=== PATIENT | female | born 1980 | race African-American/Black ===

== ENCOUNTER 2016-03-24 10:32 | Day surgery (SDC) | payer MEDICAID ==
[2016-03-24] VITALS (8 sets, daily range): BP systolic 104–110; BP diastolic 46–66; PULSE 76–96; TEMP 98–98.5
[~2016-03-24] VITALS: Ht 167.6 cm; Wt 59.1 kg
[~2016-03-24 10:32] MED LIST: ACETAMINOPHEN W1 TA6 PO; ALBUTEROL0.09 MG/A1 IH; AMOXICILLIN 50500 MG PO; BETA BLOCKER; CLEOCIN HC150 MG/CAP PO; HYPERTHYROID MED; IBU800 M1 PO; LORTAB 5/500 501 TAB PO; NAPROSYN 2250 MG/TAB PO; NAPROSYN375 MG PO; NAPROSYN500 MG PO; NO HOME MEDICATIONS; NORCO 325 MG-51 TAB PO; NORCO 325 MG-7.1 TAB PO; PERCOCET 325 MG1 TA2 PO; PHENERGAN 25 TA25 MG PO; PHENERGAN W/CO120 ML PO; PHENERGAN25 MG RC; PROAIR HFA0.09 MG/AC; PROAIR HFA0.09 MG/AC IH; PROVENTIL0.09 MG/A1 IH; TAMIFLU 75MG75 MG PO; TAPAZOLE10 MG PO; TENORMIN 2525 MG/TAB PO; ULTRAM 50MG TAB50 MG; ULTRAM 50MG TAB50 MG PO; VENTOLIN0.09 MG IH; ZOFRAN 4MG T4 MG/TAB PO; ZOFRAN ODT4 MG PO
[2016-03-24] MEDS ORDERED: TENORMIN 2525 MG/TAB PO (11:19)
[2016-03-24] MEDS ORDERED: NORCO 325 MG-51 TAB PO (14:40)
[2016-03-24] MEDS ORDERED: ZOFRAN ODT4 MG PO (14:41)
== END 2016-03-24 18:10 | disposition home or self-care (01) ==
LOC: SDCO 10:32
DX: K66.0 Peritoneal adhesions (postprocedural) (postinfection) (principal); E05.90 Thyrotoxicosis, unspecified without thyrotoxic crisis or storm
CPT/HCPCS: J0690; J1100; J1885; J2270; J2300; J2405; J2704; J3010; J7120

== ENCOUNTER → 2016-05-04 | Outpatient (CLI) | payer OTHER ==
[~2016-05-04] MED LIST changes: +ATIVAN 0.50.5 MG/TAB PO; +LEXAPRO20 MG PO; +PREDNISONE20 MG PO; +TAPAZOLE5 MG PO
== END ==
LOC: COL.RAD 09:34
DX: Z02.71 Encounter for disability determination (principal); M25.871 Other specified joint disorders, right ankle and foot

== ENCOUNTER 2016-05-07 12:52 | Emergency (ER) | payer MEDICAID ==
[~2016-05-07] VITALS: Ht 167.6 cm; Wt 59.1 kg
[~2016-05-07 12:52] MED LIST changes: -ATIVAN 0.50.5 MG/TAB PO; -LEXAPRO20 MG PO; -PREDNISONE20 MG PO; -TAPAZOLE5 MG PO
[2016-05-07 13:02] VITALS: BP 113/68; PULSE 105
[2016-05-07 15:14] LABS: INFLUENZA B NEGATIVE
[2016-05-07 15:21] VITALS: TEMP 102.7
[2016-05-07] MEDS ORDERED: PREDNISONE20 MG PO (15:29)
== END 2016-05-07 15:33 | disposition home or self-care (01) ==
LOC: COL.ER 12:52
PROVIDERS: Physician Assistant
DX: J11.1 Influenza due to unidentified influenza virus with other respiratory manifestations (principal)

== ENCOUNTER 2016-06-13 13:12 | Emergency (ER) | payer MEDICAID ==
[~2016-06-13] VITALS: Ht 167.6 cm; Wt 58.2 kg
[~2016-06-13 13:12] MED LIST changes: +PREDNISONE20 MG PO
[2016-06-13 13:23] VITALS: TEMP 99
[2016-06-13] MEDS ORDERED: LEXAPRO20 MG PO (13:30)
[2016-06-13] MEDS ORDERED: TAPAZOLE5 MG PO (13:30)
[2016-06-13] MEDS ORDERED: TENORMIN 2525 MG/TAB PO (13:32)
[2016-06-13 14:11] LABS: ADJUSTED CALCIUM 8.7 mg/dL (8.4-10.2); ALANINE AMINOTRANSFERASE 28 U/L (9-52); ALBUMIN 4.1 gm/dL (3.5-5.0); ALKALINE PHOSPHATASE 75 U/L (50-136); ANION GAP 12 mmol/L (7-16); BILIRUBIN,TOTAL 1.3 mg/dL (0.0-1.0); BLOOD UREA NITROGEN 15 mg/dL (7-17); CALCIUM 8.8 mg/dL (8.4-10.2); CARBON DIOXIDE 22 mmol/L (22-30); CHLORIDE 103 mmol/L (98-107); CREATININE, serum 1.05 mg/dL (0.52-1.25); GLUCOSE 130 mg/dL (74-106); LIPASE 42 U/L (23-300); POTASSIUM 3.6 mmol/L (3.4-5.0); SODIUM 137 mmol/L (137-145)
[2016-06-13 14:22] LABS: B-TYPE NATRIURETIC PEPTIDE 135 pg/mL (0-125)
[2016-06-13 14:25] LABS: TROPONIN-I < 0.012 ng/mL (0.000-0.034)
[2016-06-13 15:08] LABS: BASO % 0.3 % (0.0-2.0); EOS # 0.1 (0.0-0.7); EOS % 0.6 % (0-4.0); GRAN # 7.2 (1.4-6.5); GRAN % 66.5 % (42.2-75.2); HEMATOCRIT 38.2 % (37.0-47.0); HEMOGLOBIN 12.7 g/dl (12.5-16.0); LYMPH # 2.6 (1.2-3.4); MEAN CELL VOLUME 87 fl (80.0-100.0); MEAN CORPUSCULAR HEMOGLOBIN 29 pg (27.0-31.0); MEAN CORPUSCULAR HGB CONC 33 g/dl (33.0-37.0); MEAN PLATELET VOLUME 11.3 fl (7.4-10.4); MONO # 0.9 (0.1-0.6); MONO % 8.3 % (1.7-9.3); PLATELET COUNT 243 K/mm3 (130-400); RED BLOOD COUNT 4.39 M/mm3 (4.10-5.30); REDCELL DISTRIBUTION WIDTH-CV 13.1 % (11.5-14.5); WHITE BLOOD COUNT 10.8 K/mm3 (4.8-10.8)
[2016-06-13 16:38] VITALS: BP 103/87; PULSE 66
== END 2016-06-13 16:39 | disposition home or self-care (01) ==
LOC: COL.ER 13:12
PROVIDERS: Emergency Medicine
DX: R07.9 Chest pain, unspecified (principal)

== ENCOUNTER 2016-06-28 05:35 | Emergency (ER) | payer MEDICAID ==
[~2016-06-28] VITALS: Ht 167.6 cm; Wt 55.9 kg
[~2016-06-28 05:35] MED LIST changes: +LEXAPRO20 MG PO; +TAPAZOLE5 MG PO
[2016-06-28 05:37] VITALS: BP 140/78; TEMP 98.9
[2016-06-28 06:39] LABS: BASO % 0.3 % (0.0-2.0); EOS % 0.5 % (0-4.0); GRAN # 5.8 (1.4-6.5); GRAN % 67.1 % (42.2-75.2); HEMOGLOBIN 12.2 g/dl (12.5-16.0); LYMPH # 1.9 (1.2-3.4); LYMPH % 21.8 % (20.0-51.0); MEAN CELL VOLUME 87 fl (80.0-100.0); MEAN CORPUSCULAR HEMOGLOBIN 29 pg (27.0-31.0); MEAN CORPUSCULAR HGB CONC 34 g/dl (33.0-37.0); MEAN PLATELET VOLUME 10.5 fl (7.4-10.4); MONO # 0.9 (0.1-0.6); MONO % 10.1 % (1.7-9.3); PLATELET COUNT 210 K/mm3 (130-400); RED BLOOD COUNT 4.18 M/mm3 (4.10-5.30); REDCELL DISTRIBUTION WIDTH-CV 13.1 % (11.5-14.5); WHITE BLOOD COUNT 8.7 K/mm3 (4.8-10.8)
[2016-06-28 06:42] LABS: ALANINE AMINOTRANSFERASE 25 U/L (9-52); ALBUMIN 3.7 gm/dL (3.5-5.0); ALKALINE PHOSPHATASE 62 U/L (50-136); ANION GAP 11 mmol/L (7-16); BILIRUBIN,TOTAL 0.8 mg/dL (0.0-1.0); BLOOD UREA NITROGEN 9 mg/dL (7-17); CALCIUM 8.8 mg/dL (8.4-10.2); CARBON DIOXIDE 25 mmol/L (22-30); CHLORIDE 102 mmol/L (98-107); CREATININE, serum 0.95 mg/dL (0.52-1.25); GLUCOSE 102 mg/dL (74-106); HEMATOCRIT 36.4 % (37.0-47.0); POTASSIUM 3.4 mmol/L (3.4-5.0); SODIUM 138 mmol/L (137-145); TOTAL PROTEIN 6.5 gm/dL (6.4-8.2)
[2016-06-28] MEDS ORDERED: ATIVAN 0.50.5 MG/TAB PO (06:46)
[2016-06-28 06:59] LABS: TROPONIN-I < 0.012 ng/mL (0.000-0.034)
[2016-06-28 07:13] VITALS: PULSE 60
== END 2016-06-28 07:14 | disposition home or self-care (01) ==
LOC: COL.ER 05:35
PROVIDERS: Emergency Medicine
DX: R07.9 Chest pain, unspecified (principal); F41.9 Anxiety disorder, unspecified

== ENCOUNTER 2017-01-26 00:44 | Emergency (ER) | payer MEDICAID ==
[~2017-01-26] VITALS: Ht 167.6 cm; Wt 58.6 kg
[~2017-01-26 00:44] MED LIST changes: +ATIVAN 0.50.5 MG/TAB PO
[2017-01-26] MEDS ORDERED: FLOVENT 110MCG7.9 GM IH (00:51)
[2017-01-26] MEDS ORDERED: INDERAL 10MG10 MG PO (00:53)
[2017-01-26] MEDS ORDERED: SELENIUM PO (00:54)
[2017-01-26] MEDS ORDERED: ROXICODONE 55 MG/TAB PO (00:56)
[2017-01-26] MEDS ORDERED: NORCO 325 MG-7.1 TAB PO (00:56)
[2017-01-26 00:57] VITALS: BP 115/59; TEMP 99
[2017-01-26 02:36] VITALS: PULSE 74
== END 2017-01-26 02:16 | disposition home or self-care (01) ==
LOC: COL.ER 00:44
DX: M25.571 Pain in right ankle and joints of right foot (principal); J45.909 Unspecified asthma, uncomplicated; Z98.890 Other specified postprocedural states

== ENCOUNTER 2017-04-05 11:36 | Emergency (ER) | payer MEDICAID ==
[~2017-04-05] VITALS: Ht 167.6 cm; Wt 58.2 kg
[~2017-04-05 11:36] MED LIST changes: +FLOVENT 110MCG7.9 GM IH; +INDERAL 10MG10 MG PO; +ROXICODONE 55 MG/TAB PO; +SELENIUM PO
[2017-04-05 11:46] VITALS: BP 119/75; TEMP 98.4
[2017-04-05] MEDS ORDERED: AMBIEN 5MG TABLE5 MG PO (11:49)
[2017-04-05] MEDS ORDERED: FLEXERIL 1010 MG/TAB PO (12:16)
[2017-04-05 12:48] VITALS: PULSE 95
== END 2017-04-05 12:48 | disposition home or self-care (01) ==
LOC: COL.ER 11:36
DX: M62.838 Other muscle spasm (principal); Z86.39 Personal history of other endocrine, nutritional and metabolic disease; Z90.710 Acquired absence of both cervix and uterus; Z98.890 Other specified postprocedural states; Z79.51 Long term (current) use of inhaled steroids
CPT/HCPCS: J1885; J2360

== ENCOUNTER 2017-07-01 14:55 | Emergency (ER) | payer MEDICAID ==
[~2017-07-01] VITALS: Ht 167.6 cm; Wt 56.8 kg
[~2017-07-01 14:55] MED LIST changes: +AMBIEN 5MG TABLE5 MG PO; +FLEXERIL 1010 MG/TAB PO
[2017-07-01 14:58] VITALS: BP 136/67; TEMP 98.7
[2017-07-01] MEDS ORDERED: PREDNISONE20 MG PO (15:38)
[2017-07-01 15:45] VITALS: PULSE 69
== END 2017-07-01 15:47 | disposition home or self-care (01) ==
LOC: COL.ER 14:55
DX: G89.29 Other chronic pain (principal); M25.571 Pain in right ankle and joints of right foot; J45.909 Unspecified asthma, uncomplicated; F41.9 Anxiety disorder, unspecified; Z86.39 Personal history of other endocrine, nutritional and metabolic disease; Z98.890 Other specified postprocedural states; Z79.51 Long term (current) use of inhaled steroids

== ENCOUNTER 2017-07-14 08:00 | Outpatient (RCR) | payer MEDICAID | END 2017-07-31 | disposition home or self-care (01) | LOC: WSPT | DX: M92.61 Juvenile osteochondrosis of tarsus, right ankle (principal); Z98.890 Other specified postprocedural states ==

== ENCOUNTER 2017-08-08 15:32 | Emergency (ER) | payer MEDICAID ==
[~2017-08-08] VITALS: Ht 167.6 cm; Wt 59.1 kg
[2017-08-08 15:35] VITALS: TEMP 99.2
[2017-08-08] MEDS ORDERED: TENORMIN 2525 MG/TAB PO (15:45)
[2017-08-08] MEDS ORDERED: VIVLODEX5 MG PO (15:46)
[2017-08-08 16:43] VITALS: BP 124/72; PULSE 79
== END 2017-08-08 16:44 | disposition home or self-care (01) ==
LOC: COL.ER 15:32
DX: S93.401A Sprain of unspecified ligament of right ankle, initial encounter (principal); Z98.890 Other specified postprocedural states; Z86.39 Personal history of other endocrine, nutritional and metabolic disease; X50.0XXA Overexertion from strenuous movement or load, initial encounter; Y93.02 Activity, running

== ENCOUNTER 2017-08-23 11:17 | Outpatient (RCR) | payer MEDICAID ==
[~2017-08-23 11:17] MED LIST changes: +VIVLODEX5 MG PO
== END 2017-10-17 15:43 | disposition home or self-care (01) ==
LOC: WSPT 11:17
DX: M92.61 Juvenile osteochondrosis of tarsus, right ankle (principal)

== ENCOUNTER 2017-09-06 01:55 | Emergency (ER) | payer MEDICAID ==
[~2017-09-06] VITALS: Ht 165.1 cm; Wt 63.2 kg
[2017-09-06 01:59] VITALS: TEMP 97.6
[2017-09-06 03:05] VITALS: BP 134/76; PULSE 80
== END 2017-09-06 03:06 | disposition home or self-care (01) ==
LOC: COL.ER 01:55
DX: M76.61 Achilles tendinitis, right leg (principal); J45.909 Unspecified asthma, uncomplicated; E05.00 Thyrotoxicosis with diffuse goiter without thyrotoxic crisis or storm; Z79.51 Long term (current) use of inhaled steroids

== ENCOUNTER 2017-09-09 11:36 | Emergency (ER) | payer MEDICAID ==
[~2017-09-09] VITALS: Ht 167.6 cm; Wt 61.8 kg
[2017-09-09 11:38] VITALS: BP 119/67; PULSE 78; TEMP 98.6
== END 2017-09-09 12:05 | disposition home or self-care (01) ==
LOC: COL.ER 11:36
DX: M25.571 Pain in right ankle and joints of right foot (principal)

== ENCOUNTER 2017-11-02 00:59 | Emergency (ER) | payer MEDICAID ==
[~2017-11-02] VITALS: Ht 167.6 cm; Wt 62.7 kg
[2017-11-02] MEDS ORDERED: INDERAL 10MG10 MG (01:18)
[2017-11-02 01:56] VITALS: BP 125/78; PULSE 84
== END 2017-11-02 01:56 | disposition home or self-care (01) ==
LOC: COL.ER 00:59
DX: R07.89 Other chest pain (principal); F41.9 Anxiety disorder, unspecified; I10 Essential (primary) hypertension; Z90.710 Acquired absence of both cervix and uterus; Z98.890 Other specified postprocedural states; Z79.51 Long term (current) use of inhaled steroids
CPT/HCPCS: J1885

== ENCOUNTER 2018-02-20 19:27 | Emergency (ER) | payer MEDICAID ==
[~2018-02-20] VITALS: Ht 167.6 cm; Wt 59.1 kg
[~2018-02-20 19:27] MED LIST changes: +INDERAL 10MG10 MG
[2018-02-20 19:29] VITALS: TEMP 98.7
[2018-02-20 20:28] VITALS: BP 108/84; PULSE 90
== END 2018-02-20 20:29 | disposition home or self-care (01) ==
LOC: COL.ER 19:27
DX: J02.9 Acute pharyngitis, unspecified (principal); E05.00 Thyrotoxicosis with diffuse goiter without thyrotoxic crisis or storm; Z79.51 Long term (current) use of inhaled steroids

== ENCOUNTER → 2018-04-03 | Outpatient (CLI) | payer MEDICAID | LOC: MC.RAD 10:45 | DX: N63.10 Unspecified lump in the right breast, unspecified quadrant (principal); N63.20 Unspecified lump in the left breast, unspecified quadrant ==

== ENCOUNTER → 2018-04-04 | Outpatient (CLI) | payer MEDICAID | LOC: MC.RAD 09:48 | DX: N63.11 Unspecified lump in the right breast, upper outer quadrant (principal); N63.12 Unspecified lump in the right breast, upper inner quadrant; Z98.82 Breast implant status ==

== ENCOUNTER 2018-05-07 09:45 | Outpatient (RCR) | payer MEDICAID | END 2018-06-05 08:41 | disposition home or self-care (01) | LOC: WSPT 09:45 | DX: M94.0 Chondrocostal junction syndrome [Tietze] (principal); Z79.1 Long term (current) use of non-steroidal anti-inflammatories (NSAID); Z79.899 Other long term (current) drug therapy ==

== ENCOUNTER 2019-02-15 09:17 | Emergency (ER) | payer SELFPAY ==
[~2019-02-15] VITALS: Ht 167.6 cm; Wt 58.2 kg
[2019-02-15 09:25] VITALS: BP 126/62; TEMP 98.2
[2019-02-15] MEDS ORDERED: NAPROSYN500 MG PO (09:42)
[2019-02-15] MEDS ORDERED: LIDODERM 5% PATC1 EA TP (09:42)
[2019-02-15 10:15] VITALS: PULSE 99
== END 2019-02-15 10:14 | disposition home or self-care (01) ==
LOC: COL.ER 09:17
DX: M54.89 Other dorsalgia (principal); Z90.710 Acquired absence of both cervix and uterus; X50.1XXA Overexertion from prolonged static or awkward postures, initial encounter; Y92.59 Other trade areas as the place of occurrence of the external cause

== ENCOUNTER 2019-03-17 18:10 | Emergency (ER) | payer SELFPAY ==
[~2019-03-17] VITALS: Ht 167.6 cm; Wt 59.1 kg
[~2019-03-17 18:10] MED LIST changes: +LIDODERM 5% PATC1 EA TP
[2019-03-17 18:35] VITALS: TEMP 99.3
[2019-03-17 18:59] LABS: COLLECTION METHOD CLEAN CATCH
[2019-03-17 19:07] LABS: MUCOUS Present /lpf; PH 5 (5-8); URINE APPEARANCE Clear; URINE BACTERIA None Seen /hpf; URINE BILIRUBIN Negative (NEGATIVE); URINE BLOOD Negative (NEGATIVE); URINE COLOR Yellow; URINE GLUCOSE Negative (NEGATIVE); URINE KETONE Negative (NEGATIVE); URINE LEUKOCYTE ESTERASE Negative (NEGATIVE); URINE NITRATE Negative (NEGATIVE); URINE PROTEIN(semi-quant) 1+ (NEGATIVE); URINE RBC 0-2 /hpf; URINE UROBILINOGEN >=4.0 mg/dL (NEGATIVE)
[2019-03-17 19:29] LABS: TRICYCLIC ANTIDEPRESS URINE NEGATIVE
[2019-03-17 19:34] LABS: HEMOGLOBIN 11.1 g/dl (12.5-16.0); MEAN CELL VOLUME 81 fl (80.0-100.0); MEAN CORPUSCULAR HEMOGLOBIN 27 pg (27.0-31.0); MEAN CORPUSCULAR HGB CONC 33 g/dl (33.0-37.0); MEAN PLATELET VOLUME 10.5 fl (7.4-10.4); PLATELET COUNT 244 K/mm3 (130-400); RED BLOOD COUNT 4.14 M/mm3 (4.10-5.30)
[2019-03-17 19:40] LABS: HEMATOCRIT 33.7 % (37.0-47.0)
[2019-03-17 19:52] LABS: BAND 1 % (0-10); LYMPHOCYTE 20 % (20.0-51.0); NEUTROPHILS 63 % (42.0-75.2)
[2019-03-17 19:53] LABS: PLATELET ESTIMATE NORMAL (NORMAL)
[2019-03-17 19:54] LABS: ALANINE AMINOTRANSFERASE 29 U/L (9-52); ALBUMIN 3.8 gm/dL (3.5-5.0); ALKALINE PHOSPHATASE 108 U/L (50-136); ANION GAP 9 mmol/L (7-16); AST,SGOT 35 U/L (15-37); BILIRUBIN,TOTAL 0.6 mg/dL (0.0-1.0); BLOOD UREA NITROGEN 8 mg/dL (7-17); CALCIUM 8.8 mg/dL (8.4-10.2); CARBON DIOXIDE 22 mmol/L (22-30); CHLORIDE 109 mmol/L (98-107); CREATININE, serum 0.77 (0.52-1.25); GLUCOSE 96 mg/dL (74-106); POTASSIUM 3.4 mmol/L (3.4-5.0); SODIUM 140 mmol/L (137-145)
[2019-03-17 19:58] LABS: ACETAMINOPHEN < 10 ug/mL (10-30); ALCOHOL(ethanol),MEDICAL < 10 mg/dL; SALICYLATE < 1.0 mg/dL
[2019-03-17] MEDS ORDERED: TAPAZOLE5 MG PO (20:35)
[2019-03-17 22:58] VITALS: BP 113/61; PULSE 90
== END 2019-03-17 22:58 | disposition home or self-care (01) ==
LOC: COL.ER 18:10
PROVIDERS: Emergency Medicine
DX: F32.9 Major depressive disorder, single episode, unspecified (principal); E05.00 Thyrotoxicosis with diffuse goiter without thyrotoxic crisis or storm; Z90.710 Acquired absence of both cervix and uterus

== ENCOUNTER 2019-04-01 10:08 | Emergency (ER) | payer SELFPAY ==
[~2019-04-01] VITALS: Ht 167.6 cm; Wt 59.1 kg
[2019-04-01 10:37] LABS: COLLECTION METHOD CLEAN CATCH
[2019-04-01 10:47] LABS: MUCOUS Present /lpf; PH 5 (5-8); URINE APPEARANCE Clear; URINE BACTERIA None Seen /hpf; URINE BILIRUBIN Negative (NEGATIVE); URINE BLOOD Negative (NEGATIVE); URINE COLOR Yellow; URINE GLUCOSE Negative (NEGATIVE); URINE KETONE Negative (NEGATIVE); URINE LEUKOCYTE ESTERASE Negative (NEGATIVE); URINE NITRATE Negative (NEGATIVE); URINE PROTEIN(semi-quant) 1+ (NEGATIVE); URINE RBC 0-2 /hpf; URINE UROBILINOGEN >=4.0 mg/dL (NEGATIVE)
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
[2019-04-01 11:50] VITALS: BP 137/79; PULSE 78; TEMP 98.6
== END 2019-04-01 11:50 | disposition home or self-care (01) ==
LOC: COL.ER 10:08
PROVIDERS: Physician Assistant
DX: R30.0 Dysuria (principal); J45.909 Unspecified asthma, uncomplicated; F32.9 Major depressive disorder, single episode, unspecified; F41.9 Anxiety disorder, unspecified
CPT/HCPCS: J0696

== ENCOUNTER 2019-04-08 08:46 | Outpatient (RCR) | payer OTHER | END 2019-05-16 15:10 | disposition home or self-care (01) | LOC: WSPT 08:46 | DX: S46.812A Strain of other muscles, fascia and tendons at shoulder and upper arm level, left arm, initial encounter (principal); F32.9 Major depressive disorder, single episode, unspecified; E05.90 Thyrotoxicosis, unspecified without thyrotoxic crisis or storm; E05.00 Thyrotoxicosis with diffuse goiter without thyrotoxic crisis or storm; J45.909 Unspecified asthma, uncomplicated; R00.2 Palpitations; Z98.890 Other specified postprocedural states; Z90.710 Acquired absence of both cervix and uterus; Y99.0 Civilian activity done for income or pay | CPT/HCPCS: G0283-GP ==

== ENCOUNTER 2019-04-28 23:42 | Emergency (ER) | payer SELFPAY ==
[~2019-04-28] VITALS: Ht 167.6 cm; Wt 59.1 kg
[2019-04-28 23:48] VITALS: TEMP 98.8
[2019-04-29 00:16] VITALS: BP 128/78; PULSE 93
== END 2019-04-29 00:21 | disposition home or self-care (01) ==
LOC: COL.ER 23:42
DX: S60.222A Contusion of left hand, initial encounter (principal); Y04.8XXA Assault by other bodily force, initial encounter; Y92.009 Unspecified place in unspecified non-institutional (private) residence as the place of occurrence of the external cause

== ENCOUNTER 2020-08-04 08:10 | Emergency (ER) | payer SELFPAY ==
[~2020-08-04] VITALS: Ht 170.2 cm; Wt 55.0 kg
[2020-08-04 08:16] VITALS: TEMP 98.9
[2020-08-04] MEDS ORDERED: FLEXERIL 1010 MG/TAB PO (10:10)
[2020-08-04 10:29] VITALS: BP 117/71; PULSE 75
== END 2020-08-04 10:29 | disposition home or self-care (01) ==
LOC: COL.ER 08:10
DX: S46.912A Strain of unspecified muscle, fascia and tendon at shoulder and upper arm level, left arm, initial encounter (principal); X50.0XXA Overexertion from strenuous movement or load, initial encounter; Y04.8XXA Assault by other bodily force, initial encounter
CPT/HCPCS: J1885; J2360

== ENCOUNTER 2020-08-21 00:28 | Emergency (ER) | payer SELFPAY ==
[~2020-08-21] VITALS: Ht 167.6 cm; Wt 56.8 kg
[2020-08-21 00:32] VITALS: TEMP 97.2
[2020-08-21 01:30] VITALS: BP 114/70; PULSE 98
== END 2020-08-21 01:30 | disposition home or self-care (01) ==
LOC: COL.ER 00:28
DX: R07.0 Pain in throat (principal); J45.909 Unspecified asthma, uncomplicated
CPT/HCPCS: J8540

== ENCOUNTER 2020-09-18 00:15 | Emergency (ER) | payer SELFPAY ==
[~2020-09-18] VITALS: Ht 170.2 cm; Wt 56.8 kg
[2020-09-18 03:54] VITALS: BP 146/86; PULSE 78; TEMP 98.3
== END 2020-09-18 03:54 | disposition home or self-care (01) ==
LOC: COL.ER 00:15
DX: S00.03XA Contusion of scalp, initial encounter (principal); R07.0 Pain in throat; Y08.89XA Assault by other specified means, initial encounter; Y07.03 Male partner, perpetrator of maltreatment and neglect

== ENCOUNTER 2021-02-15 09:11 | Emergency (ER) | payer OTHER ==
[~2021-02-15] VITALS: Ht 167.6 cm; Wt 58.2 kg
[2021-02-15 09:44] VITALS: TEMP 99.1
[2021-02-15] MEDS ORDERED: TAMIFLU 75MG75 MG PO (10:51)
[2021-02-15 10:55] VITALS: BP 140/81; PULSE 98
== END 2021-02-15 10:59 | disposition home or self-care (01) ==
LOC: COL.ER 09:11
DX: J10.1 Influenza due to other identified influenza virus with other respiratory manifestations (principal); J45.909 Unspecified asthma, uncomplicated; Z20.822 Contact with and (suspected) exposure to COVID-19; Z79.899 Other long term (current) drug therapy

== ENCOUNTER 2021-04-30 22:42 | Emergency (ER) | payer OTHER ==
[~2021-04-30] VITALS: Ht 167.6 cm; Wt 57.3 kg
[2021-04-30 22:48] VITALS: TEMP 98.2
[2021-04-30] MEDS ORDERED: NORCO 325 MG-51 TAB PO ×2 (23:06)
[2021-04-30 23:28] VITALS: BP 121/77; PULSE 75
== END 2021-04-30 23:28 | disposition home or self-care (01) ==
LOC: COL.ER 22:42
DX: M79.672 Pain in left foot (principal); R60.0 Localized edema; Z79.891 Long term (current) use of opiate analgesic

== ENCOUNTER → 2021-05-01 | Outpatient (CLI) | payer OTHER | LOC: COL.RAD 10:31 | DX: M79.89 Other specified soft tissue disorders (principal); Z98.890 Other specified postprocedural states ==

== ENCOUNTER 2021-06-25 23:39 | Emergency (ER) | payer OTHER, MEDICAID ==
[~2021-06-25] VITALS: Ht 167.6 cm; Wt 54.5 kg
[2021-06-25 23:44] VITALS: TEMP 98.3
[2021-06-26] MEDS ORDERED: FLEXERIL 1010 MG/TAB PO (02:08)
[2021-06-26 02:15] VITALS: BP 124/78; PULSE 70
== END 2021-06-26 02:15 | disposition home or self-care (01) ==
LOC: COL.ER 23:39
DX: M54.2 Cervicalgia (principal); T74.11XA Adult physical abuse, confirmed, initial encounter; H57.12 Ocular pain, left eye; R11.0 Nausea; F17.210 Nicotine dependence, cigarettes, uncomplicated

== ENCOUNTER 2021-06-30 10:45 | Outpatient (RCR) | payer OTHER, MEDICAID | END 2021-07-03 | disposition home or self-care (01) | LOC: WSPT | DX: M25.571 Pain in right ankle and joints of right foot (principal) ==

== ENCOUNTER 2021-07-19 12:45 | Outpatient (RCR) | payer OTHER, MEDICAID | END 2021-08-03 | disposition home or self-care (01) | LOC: WSC | DX: M25.571 Pain in right ankle and joints of right foot (principal) ==

== ENCOUNTER 2021-09-01 10:30 | Outpatient (RCR) | payer OTHER, MEDICAID | END 2021-09-02 | disposition home or self-care (01) | LOC: WSPT | DX: M25.571 Pain in right ankle and joints of right foot (principal) ==

== ENCOUNTER 2021-09-29 12:45 | Outpatient (RCR) | payer OTHER, MEDICAID | END 2021-10-03 | disposition home or self-care (01) | LOC: WSC | DX: M25.571 Pain in right ankle and joints of right foot (principal) ==

== ENCOUNTER 2021-11-01 15:45 | Outpatient (RCR) | payer OTHER, MEDICAID | END 2021-11-03 | disposition home or self-care (01) | LOC: WSPT | DX: M25.571 Pain in right ankle and joints of right foot (principal) ==

== ENCOUNTER 2022-03-22 08:30 | Outpatient (RCR) | payer MEDICAID | END 2022-03-22 09:00 | disposition home or self-care (01) | LOC: WSPT 08:30 | DX: M25.571 Pain in right ankle and joints of right foot (principal) ==

== ENCOUNTER 2022-05-31 09:00 | Outpatient (RCR) | payer MEDICAID | END 2022-06-03 | disposition home or self-care (01) | LOC: WSPT | DX: M76.61 Achilles tendinitis, right leg (principal) ==

== ENCOUNTER 2022-06-21 23:49 | Emergency (ER) | payer MEDICAID ==
[~2022-06-21] VITALS: Ht 170.2 cm; Wt 56.8 kg
[2022-06-22 00:03] VITALS: BP 143/85; TEMP 98.5
[2022-06-22 01:02] VITALS: PULSE 91
== END 2022-06-22 01:02 | disposition home or self-care (01) ==
LOC: COL.ER 23:49
DX: Z11.3 Encounter for screening for infections with a predominantly sexual mode of transmission (principal); F17.210 Nicotine dependence, cigarettes, uncomplicated; Z28.310 Unvaccinated for COVID-19

== ENCOUNTER 2022-06-29 09:45 | Outpatient (RCR) | payer MEDICAID | END 2022-07-03 | disposition home or self-care (01) | LOC: WSPT | DX: M76.61 Achilles tendinitis, right leg (principal) ==

== ENCOUNTER → 2022-11-21 | Outpatient (CLI) | payer MEDICAID ==
[~2022-11-21] MED LIST changes: +ATARAX50 MG PO; +DESYREL 50MG50 MG PO; +EFFEXOR XR75 MG/CAP PO; +INDERAL 20MG20 MG PO; +MINIPRESS 1M1 MG/CAP PO; +PRIL40 PO; +VALTREX1 GM PO
[2022-11-21 15:40] LABS: BASO % 0.1 % (0.0-2.0); EOS # 0.1 K/mm3 (0.0-0.7); EOS % 1.6 % (0.0-4.0); GRAN # 3.7 K/mm3 (1.4-6.5); GRAN % 51.2 % (42.2-75.2); HEMOGLOBIN 10.9 g/dl (12.5-16.0); LYMPH # 2.4 K/mm3 (1.2-3.4); MEAN CELL VOLUME 81 fl (80.0-100.0); MEAN CORPUSCULAR HEMOGLOBIN 26 pg (27-31); MEAN CORPUSCULAR HGB CONC 32 g/dl (33.0-37.0); MEAN PLATELET VOLUME 10.5 fl (7.4-10.4); MONO % 13.8 % (1.7-9.3); PLATELET COUNT 218 K/mm3 (130-400); RED BLOOD COUNT 4.21 M/mm3 (4.10-5.30); REDCELL DISTRIBUTION WIDTH-CV 13.4 % (11.5-14.5)
[2022-11-21 15:41] LABS: HEMATOCRIT 33.9 % (37.0-47.0)
== END ==
LOC: COL.LAB 15:07
PROVIDERS: Obstetrics & Gynecology
DX: J45.909 Unspecified asthma, uncomplicated (principal)

== ENCOUNTER 2023-04-04 08:30 | Outpatient (RCR) | payer MEDICAID ==
[~2023-04-04 08:30] MED LIST changes: +PAXLOVID CO-PA1 EACH PO
== END 2023-04-05 | disposition home or self-care (01) ==
LOC: WSPT
DX: M25.571 Pain in right ankle and joints of right foot (principal)